=== PATIENT | male | born 1995 | race Caucasian/White ===

== ENCOUNTER 2019-08-23 03:09 | Emergency (ER) | payer OTHER ==
--- NOTE | 2019-08-23 04:37 | ED ---
Alcohol HPI - General Chief Complaint: Alcohol Stated Complaint: ETOH Time Seen by Provider: 08/23/19 03:15 Source: patient, EMS Mode of arrival: EMS Limitations: no limitations - History of Present Illness Initial Comments: Elkin is 24-year-old male who presents the ER today via ambulance for evaluation of alcohol intoxication. Patient reports that he is in town for a convention in the were drinking heavily last night he reports he started drinking beer but then began drinking liquor, he recalls walking back to his hotel room was quite intoxicated. He is also noted to have a disagreement with his girlfriend. She reports that she heard him snoring on the floor and attempted to wake him up but clinically at which time she called 911. EMS reports that the patient awoke to verbal stimuli and was clearly intoxicated but awake alert and oriented. In no signs of trauma. Patient states he's not certain if he could've rolled out of bed which would be approximately at 2 foot fall onto carpeted ground or if he got up and decided to sleep on the floor he has he had been in an argument with his girlfriend anyways. Patient denies any headache vision changes or injury. - Related Data Home Medications Medication Instructions Recorded Confirmed No Known Home Medications 08/23/19 08/23/19 Allergies Allergy/AdvReac Type Severity Reaction Status Date / Time Sulfa (Sulfonamide Allergy Rash/Hives Verified 08/23/19 03:21 Antibiotics) Review of Systems ROS Statement: Those systems with pertinent positive or pertinent negative responses have been documented in the HPI. ROS Other: All systems not noted in ROS Statement are negative. Past Medical History Past Medical History: No Reported History History of Any Multi-Drug Resistant Organisms: None Reported Past Surgical History: No Surgical Hx Reported Past Psychological History: No Psychological Hx Reported Smoking Status: Light tobacco smoker Past Alcohol Use History: Occasional Past Drug Use History: None Reported General Exam - General Exam Comments Initial Comments: Physical Exam GENERAL: Patient is well-developed and well-nourished. Patient is nontoxic and well- hydrated and is in no distress. HENT: Normocephalic, Atraumatic. TMs normal bilaterally No hemotympanum, no loyd signs, no raccoon eyes No signs of blood in the oropharynx or nose EYES: PERRL, EOMI PULMONARY: Unlabored respirations. No audible rales rhonchi or wheezing was noted. CARDIOVASCULAR: There is a regular rate and rhythm without any murmurs gallops or rubs. ABDOMEN: Soft and nontender with normal bowel sounds. SKIN: Skin is clear with no lesions or rashes and otherwise unremarkable. : Deferred NEUROLOGIC: Patient is alert and oriented x3. Moving all extremities spontaneously MUSCULOSKELETAL: Normal extremities with adequate strength and full range of motion. No lower extremity swelling or edema. No calf tenderness. PSYCHIATRIC: Normal psychiatric evaluation. Limitations: no limitations Course Vital Signs 08/23/19 08/23/19 03:16 04:57 Temperature 97.5 F L 97.9 F Pulse Rate 103 H 104 H Respiratory 18 16 Rate Blood Pressure 121/73 120/68 O2 Sat by Pulse 100 97 Oximetry Medical Decision Making - Medical Decision Making Patient was seen and evaluated history was obtained from the patient and girlfriend at bedside Patient is drinking heavily the night before is found to be sleeping on the ground girlfriend had trouble waking him and called EMS who were able to wake up verbal stimuli. An IV was established patient was receiving IV fluids upon arrival the emergency department patient admitted to being intoxicated but is awake alert oriented. No signs of trauma. No complaints. Patient was observed for 90 minutes he received 1 L fluid bolus he remained awake alert and oriented, speech was clear, he was able to ambulate independently. Girlfriend's comfortable with plan for discharge home she is aware that he is still slightly intoxicated but is comfortable with this she is comfortable taking care of him there discharged home in stable condition. Disposition Clinical Impression: Alcoholic intoxication Disposition: HOME SELF-CARE Condition: Stable Instructions (If sedation given, give patient instructions): Alcohol Intoxication (ED) Is patient prescribed a controlled substance at d/c from ED?: No Referrals: None,Stated [Primary Care Provider] - 1-2 days
[2019-08-23 04:57] VITALS: BP 120/68; PULSE 104; RESP 16; TEMP 97.9
== END 2019-08-23 04:55 | disposition home or self-care (01) ==
LOC: EC 03:09
DX: F10.129 Alcohol abuse with intoxication, unspecified (principal); F17.210 Nicotine dependence, cigarettes, uncomplicated; Z88.2 Allergy status to sulfonamides
CPT/HCPCS: 99284